=== PATIENT | female | born 1970 | race Caucasian/White ===

== ENCOUNTER 2024-12-20 11:54 | Outpatient (CLI) | payer MEDICARE, SELFPAY ==
[2024-12-20 12:59] LABS: Anion Gap 6 mmol/L (4-12); Blood Urea Nitrogen 8 mg/dL (7-17); Calcium 9.5 mg/dL (8.4-10.2); Carbon Dioxide 30 mmol/L (22-30); Chloride 103 mmol/L (98-107); Estimated Glomerular Filt Rate > 60; Glucose 74 mg/dL (65-110); Potassium 3.7 mmol/L (3.4-5.0); Sodium 139 mmol/L (137-145)
--- OUTSIDE RECORDS SUMMARY | 2024-12-20 13:23 | XMS_ITS | Data Portability ---
Author Organization [facility], [address] [facility] ([place]) Address [address] [place] [address] Care Team Providers Care Senior Windows Engineer Name Role Phone LANIE SIFUENTES Primary Care Provider Assessment No assessment recorded. Plan of Treatment Reminders Order Date Submit Date Provider Last Modified By Organization Details Last Modified Time Details Appointments None recorded. Lab None recorded. Referral None recorded. Procedures None recorded. Surgeries None recorded. Imaging None recorded. Medication Orders minoxidil 2.5 mg tablet 2023 [facility] [address], [address] [place] [address], [id number], 4 11:48:39 betamethaso ne dipropionat e 0.05 % lotion 2023 024 [facility] [address], [address] [place] [address], [id number], 4 11:48:40 Patient TargetsNo targets recorded. Patient Instructions Encounter Date Encounter Id Patient Instructions Last Modified By Organization Details Last Modified Time 02/03/2024 [id number] 1. Alopecia. Discussed pathophysiology and treatment options. At first I would like to start with blood work and patient agreed. CBC, CMP, TSH, B12, iron panel, and STORM are needed at this time. I will call with those results and give further recommendations at that time. In the meantime, I will start oral Minoxidil 2.5 mg 1/2 tablet daily. Patient declines a history of any cardiac disorders. Discussed possible side effects such as headaches, dizziness, heart palpitations, leg edema, etc. Call if she has any issues or questions. Recheck in 3 months. 2. I will also start Betamethasone lotion to apply to the scalp every other day until hair is back to normal then as needed. Warned about the long-term side effects and need to give breaks. 3. Rhytides to the forehead and Enlarged Pores to the nose and chin. Patient has not tried any antiaging products so I would like to try a retinoid. I would like to try Differin gel OTC first once a day in the evening after moisturizer. Patient would also like to see Yoli for possible Botox injections. Call with any questions or concerns. Plan of care reviewed and discussed with patient. Patient verbalizes understanding and has no questions. [email or web address] Not available 02/04/2024 06:52:59 Reason for Referral None Reported. Results Created Date Observation Date Name Description Value Unit Range Abnormal Flag Note LastModifiedBy Organization Detail LastModifiedTime 02/03/20 24 02/03/2024 CBC w/ auto diff CBC with differential Not Available [facility] [address] [place] [address], [id number], 02/03/2024 19:22:55 02/03/20 24 02/03/2024 CBC w/ auto diff WBC 7.0 K/uL 3.8-11 .2 Not Available [facility] [address] [place] [address], [id number], 02/03/2024 19:22:55 02/03/20 24 02/03/2024 CBC w/ auto diff RBC 5.10 M/uL 3.92-5 .10 Not Available [facility] [address] [place] [address], [id number], 02/03/2024 19:22:55 02/03/20 24 02/03/2024 CBC w/ auto diff HGB 15.3 g/dL 11.8-1 5.3 Not Available [facility] [address] [place] [address], [id number], 02/03/2024 19:22:55 02/03/20 24 02/03/2024 CBC w/ auto diff HCT 45.4 % 36.5-4 4.8 high Not Available [facility] [address] [place] [address], [id number], 02/03/2024 19:22:55 02/03/20 24 02/03/2024 CBC w/ auto diff MCV 89.0 fL 80.0-9 9.0 Not Available [facility] [address] [place] [address], [id number], 02/03/2024 19:22:55 02/03/20 24 02/03/2024 CBC w/ auto diff MCH 30.0 pg 25.5-3 3.6 Not Available [facility] [address] [place] [address], [id number], 02/03/2024 19:22:55 02/03/20 24 02/03/2024 CBC w/ auto diff MCHC 33.7 g/dL 32.0-3 6.0 Not Available [facility] [address] [place] [address], [id number], 02/03/2024 19:22:55 02/03/20 24 02/03/2024 CBC w/ auto diff RDW-SD 44.7 fL 35.1 - 46.3 Not Available [facility] [address] [place] [address], [id number], 02/03/2024 19:22:55 02/03/20 24 02/03/2024 CBC w/ auto diff plt 308 K/uL 130-40 0 Not Available [facility] [address] [place] [address], [id number], 02/03/2024 19:22:55 02/03/20 24 02/03/2024 CBC w/ auto diff MPV 9.2 fL 9.3-12 .8 low Not Available [facility] [address] [place] [address], [id number], 02/03/2024 19:22:55 02/03/20 24 02/03/2024 CBC w/ auto diff jai% 62.3 % 39.8-7 1.3 Not Available [facility] [address] [place] [address], [id number], 02/03/2024 19:22:55 02/03/20 24 02/03/2024 CBC w/ auto diff lym% 31.5 % 19.2-4 7.1 Not Available [facility] [address] [place] [address], [id number], 02/03/2024 19:22:55 02/03/20 24 02/03/2024 CBC w/ auto diff mono% 4.6 % 1.7-12 .0 Not Available [facility] [address] [place] [address], [id number], 02/03/2024 19:22:55 02/03/20 24 02/03/2024 CBC w/ auto diff eos% 0.6 % 0.0-12 .0 Not Available [facility] [address] [place] [address], [id number], 02/03/2024 19:22:55 02/03/20 24 02/03/2024 CBC w/ auto diff baso% 0.7 % 0.0-3. 0 Not Available [facility] [address] [place] [address], [id number], 02/03/2024 19:22:55 02/03/20 24 02/03/2024 CBC w/ auto diff abs jai 4.4 K/uL 1.8-7. 5 Not Available [facility] [address] [place] [address], [id number], 02/03/2024 19:22:55 02/03/20 24 02/03/2024 CBC w/ auto diff abs lym 2.2 K/uL 1.1-3. 3 Not Available [facility] [address] [place] [address], [id number], 02/03/2024 19:22:55 02/03/20 24 02/03/2024 CBC w/ auto diff abs mono 0.3 K/uL 0.1-1. 0 Not Available [facility] [address] [place] [address], [id number], 02/03/2024 19:22:55 02/03/20 24 02/03/2024 CBC w/ auto diff abs eos 0.0 K/uL 0.0-0. 7 Not Available [facility] [address] [place] [address], [id number], 02/03/2024 19:22:55 02/03/20 24 02/03/2024 CBC w/ auto diff abs baso 0.1 K/uL 0.0-0. 2 Not Available [facility] [address] [place] [address], [id number], 02/03/2024 19:22:55 02/03/20 24 02/03/2024 CBC w/ auto diff imm. gran % 0.3 % 0.0-3. 0 Not Available [facility] [address] [place] [address], 61277, 02/03/2024 19:22:55 02/03/20 24 02/03/2024 CBC w/ auto diff NRBC % 0.0 % 0.0-0. 2 Not Available [facility] [address] [place] [address], 87634, 02/03/2024 19:22:55 02/03/20 24 02/03/2024 folat e, serum folate-serum 12.90 NG/mL 5.9 - >24 <4 = Defic ient Speci mens that conta in high level s of bioti n may cause false ly high Folat e resul ts. Not Available [facility] [address] [place] [address], [id number], 02/03/2024 19:38:57 02/03/20 24 02/03/2024 TSH, ultra -sens itive , serum TSH3 0.792 uIU/m L .340-5 .600 Not Available [facility] [address] [place] [address], 48984, 02/03/2024 19:47:57 02/03/20 24 02/03/2024 CMP, serum or plasm a comp. met. panel Not Available [facility] [address] [place] [address], [id number], 02/03/2024 19:47:59 02/03/20 24 02/03/2024 CMP, serum or plasm a sodium 142 mmol/ L 136-14 6 Not Available [facility] [address] [place] [address], 31564, 02/03/2024 19:47:59 02/03/20 24 02/03/2024 CMP, serum or plasm a potassium 4.2 mmol/ L 3.5-5. 1 Not Available [facility] [address] [place] [address], 78951, 02/03/2024 19:47:59 02/03/20 24 02/03/2024 CMP, serum or plasm a chloride 104 mmol/ L 98-110 Not Available [facility] [address] [place] [address], 37351, 02/03/2024 19:47:59 02/03/20 24 02/03/2024 CMP, serum or plasm a CO2 28 mEq/L 20-32 Not Available [facility] [address] [place] [address], 52596, 02/03/2024 19:47:59 02/03/20 24 02/03/2024 CMP, serum or plasm a anion gap 14 mmol/ L 10-22 Not Available [facility] [address] [place] [address], 98335, 02/03/2024 19:47:59 02/03/20 24 02/03/2024 CMP, serum or plasm a glucose 75 mg/dL 70-100 Not Available [facility] [address] [place] [address], 30202, 02/03/2024 19:47:59 02/03/20 24 02/03/2024 CMP, serum or plasm a calcium 10.5 mg/dL 8.4-10 .4 high Not Available [facility] [address] [place] [address], 44369, 02/03/2024 19:47:59 02/03/20 24 02/03/2024 CMP, serum or plasm a total protein 7.3 g/dL 6.4-8. 3 Not Available [facility] [address] [place] [address], 17934, 02/03/2024 19:47:59 02/03/20 24 02/03/2024 CMP, serum or plasm a albumin 4.9 g/dL 3.5-5. 3 Not Available [facility] [address] [place] [address], 90996, 02/03/2024 19:47:59 02/03/20 24 02/03/2024 CMP, serum or plasm a ALP 96 U/L 44 - 127 Not Available [facility] [address] [place] [address], 12683, 02/03/2024 19:47:59 02/03/20 24 02/03/2024 CMP, serum or plasm a AST (SGOT) 18 U/L 10-40 Not Available [facility] [address] [place] [address], [id number], 02/03/2024 19:47:59 02/03/20 24 02/03/2024 CMP, serum or plasm a total bilirubin 0.4 mg/dL 0.2-1. 0 Not Available [facility] [address] [place] [address], [id number], 02/03/2024 19:47:59 02/03/20 24 02/03/2024 CMP, serum or plasm a ALT (SGPT) 11 U/L 8-35 Not Available [facility] [address] [place] [address], 87767, 02/03/2024 19:47:59 02/03/20 24 02/03/2024 CMP, serum or plasm a BUN 8 mg/dL 7-21 Not Available [facility] [address] [place] [address], 49778, 02/03/2024 19:47:59 02/03/20 24 02/03/2024 CMP, serum or plasm a creatinine 0.9 mg/dL 0.7-1. 3 Not Available [facility] [address] [place] [address], [id number], 02/03/2024 19:47:59 02/03/20 24 02/03/2024 CMP, serum or plasm a GFR(non-afri can new zealander) 69 Not Available [facility] [address] [place] [address], 84201, 02/03/2024 19:47:59 02/03/20 24 02/03/2024 CMP, serum or plasm a GFR() 84 (BOILER WELDER STEPH KIDNE Y DISEA SE HAS A GFR LESS THAN 60 ML/OK N/1.7 3 MM FOR A PERIO D OF THREE MONTH S OR MORE. ) Not Available [facility] [address] [place] [address], 44813, 02/03/2024 19:47:59 02/03/20 24 02/03/2024 iron panel , serum or plasm a iron panel Not Available [facility] [address] [place] [address], 35703, 02/03/2024 19:48:01 02/03/20 24 02/03/2024 iron panel , serum or plasm a iron 80 ug/dL 50-212 Not Available [facility] [address] [place] [address], 44853, 02/03/2024 19:48:01 02/03/20 24 02/03/2024 iron panel , serum or plasm a % saturation 22 % 20-55 Not Available [facility] [address] [place] [address], 57204, 02/03/2024 19:48:01 02/03/20 24 02/03/2024 iron panel , serum or plasm a ferritin 36 NG/mL 12-150 Not Available [facility] [address] [place] [address], 02499, 02/03/2024 19:48:01 02/03/20 24 02/03/2024 iron panel , serum or plasm a TIBC. 363 ug/dL 205 - 512 Not Available [facility] [address] [place] [address], 95073, 02/03/2024 19:48:01 02/03/20 24 02/03/2024 vitam in B12, serum vitamin B12 847 pg/mL 180-91 4 <145 pg/mL = Defic ient 145 - 180 pg/mL = Inter media te Not Available [facility] [address] [place] [address], 33542, 02/03/2024 19:48:03 02/03/20 24 02/05/2024 STORM (anti nucle ar antib odies ) scree n, serum STORM screen NEGATI VE negati ve Perfo rmed by Bio-R ad enzym e immun oassa y Not Available [facility] [address] [place] [address], 92946, 02/05/2024 12:29:22 Result Notes None recorded. 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 Procedures Surgical History Date Name Laterality Status Provider Name and Address Organization Details Recorded Time Appendectomy completed Not Available Health Note 02/02/2024 22:55:40 Total hysterectomy completed Not Available Health Note 02/02/2024 22:55:40 Removal of tonsils completed Not Available Health Note 02/02/2024 22:55:40 Imaging Results None recorded. Procedure Notes None recorded. Medical Equipment None Reported. Allergies Allergen ID Allergen Name Allergen Category Reaction Reaction Severity Criticality Documentation Date Start Date Code Code System Note Provider Name and Address Organization Details Recorded Time 2521307 Product containin g penicilli n (product) medicatio n itching rash Not available Not available Not available 02/02/2024 30351 8001 SNOMED Not Available Health Note 4 22:55:40 [id number] pholcodin e Not available itching nausea rash Not available Not available Not available Not available 02/02/2024 96437 RxNorm Xochitl Jacob [facility] 4 11:10:35 1072186 codeine medicatio n headache rash Not available Not available Not available 02/03/2024 2670 [facility] 4 11:11:06 6166054 prednison e medicatio n Not available Not available Not available 04/21/20242010 8640 RxNorm Not Available [facility] 4 20:32:06 3014671 codeine sulfate medicatio n Not available Not available Not available 04/21/20242010 03389 RxNorm Not Available [facility] 4 20:32:14 4630425 azithromy serafin medicatio n Not available Not available Not available 04/21/20242010 32653 RxNorm Not Available [facility] 20:32:29 Medications Name Sig Start Date Stop Date Status Note LastModified by Organization Details LastModified Time cyclobenzap rine 10 mg tablet TAKE 1 TO 2 TABLETS BY MOUTH EVERY 6 HOURS NEEDED active Not Available Not Available No t Available atorvastati n 20 mg tablet TAKE ONE Tablet BY MOUTH EVERY DAY active Not Available Not Available No t Available azithromyci n 250 mg tablet TAKE 2 TABLETS BY MOUTH ON DAY 1, AND THEN TAKE 1 TABLET BY MOUTH ONCE A DAY ON DAY 2 THROUGH DAY 5 02/02 completed Not Available Not Available Not Available meloxicam 15 mg tablet 02/02 completed Not Available Not Available Not Available ondansetron HCl 4 mg tablet TAKE 1 TABLET BY MOUTH EVERY 8 HOURS NEEDED active Not Available Not Available No t Available ropinirole 3 mg tablet TAKE 1 TABLET BY MOUTH THREE TIMES DAILY active Not Available Not Available No t Available gabapentin 400 mg capsule TAKE THREE Capsules BY MOUTH THREE TIMES DAILY active Not Available Not Available No t Available hydroxyzine HCl 50 mg tablet TAKE 1 TABLET BY MOUTH 4 TIMES DAILY NEEDED active Not Available Not Available No t Available minoxidil 2.5 mg tablet take 1/2 tab daily 2023 active Not Available Not Available Not Avai lable ropinirole 2 mg tablet TAKE ONE Tablet BY MOUTH THREE TIMES DAILY active Not Available Not Available No t Available trazodone 150 mg tablet TAKE 2 TABLETS BY MOUTH AT BEDTIME active Not Available Not Available No t Available oxybutynin chloride ER 5 mg tablet,exte nded release 24 hr TAKE 1 TABLET BY MOUTH ONCE DAILY active Not Available Not Available No t Available omeprazole 20 mg capsule,del ayed release TAKE 2 CAPSULES BY MOUTH AT BEDTIME active Not Available Not Available No t Available levofloxaci n 500 mg tablet TAKE 1 TABLET BY MOUTH ONCE DAILY FOR 10 DAYS 02/02 completed Not Available Not Available Not Available oxybutynin chloride 5 mg tablet TAKE 1 TABLET BY MOUTH TWICE DAILY active Not Available Not Available No t Available betamethaso ne dipropionat e 0.05 % lotion apply to scalp every other day until hair is normal, then as needed 2023 active Not Available Not Available Not Avai lable Ventolin HFA 90 mcg/actuati on aerosol inhaler INHALE 2 PUFFS BY MOUTH EVERY 4 HOURS NEEDED active Not Available Not Available No t Available escitalopra m 10 mg tablet TAKE 1 TABLET BY MOUTH ONCE DAILY 02/02 completed Not Available Not Available Not Available Premarin 0.625 mg/gram vaginal cream INSERT 0.5 APPLICATO RSFUL EVERY DAY BY VAGINAL ROUTE, USE NIGHTLY FOR 2 WEEKS, THEN EVERY OTHER NIGHT, THEN TWICE PER WEEK active Not Available Not Available No t Available Vitals Date Recorded Body height Body mass index (BMI) Body weight Provider Name and Address Organization Details Last Updated DateTime 02/03/2024 170.18 cm 19.3 kg/m2 56914.86 g Xochitl Mcgheek [place] - [facility] 02/03/2024 11:10:13 Social History Question Answer Notes LastModified by [employer] ion Details LastModified Time Do You Have An Advance Directive? No [email or web address] Information not available 02/02/2024 What Is Your Level Of Caffeine Consumption? Moderate [email or web address] Information not available 02/02/2024 How Many Times Per Week Do You Exercise? 1-2 Times Per Week [email or web address] Information not available 02/02/2024 How Many Packs Per Day (PPD)? 1/4 Pack Per Day [email or web address] Information not available 02/02/2024 How Long Have You Smoked? 30 Years [email or web address] Information not available 02/02/2024 Do You Have A Medical Power Of Claim Administrator? No [email or web address] Information not available 02/02/2024 What Was The Date Of Your Most Recent Tobacco Screening? 02/03/2024 [email or web address] Information not available 02/02/2024 What Is Your Relationship Status? [email or web address] Information not available 02/02/2024 Do You Use Sunscreen Routinely? Yes [email or web address] Information not available 02/03/2024 Sex: Unknown Functional Status Question Answer Note LastModified by [employer] ion Details LastModified Time Do you use any illicit or recreational drugs? No [email or web address] Information not available 02/02/2024 What is your level of alcohol consumption? None [email or web address] Information not available 02/02/2024 Are you currently employed? No [email or web address] Information not available 02/02/2024 What is your occupation? Disabled [email or web address] Information not available 02/02/2024 What is your exercise level? Occasional [email or web address] Information not available 02/02/2024 Mental Status None recorded. Family History Relationship Description Onset Age of this Age Resolved Age Notes LastModified by Organization Details LastModified Time Son Attention deficit hyperactivit y disorder [email or web address] Not available 02/01 22:55:39 Mother Arthritis [email or web address] Not available 02/02/2024 22:55:39 Mother Chronic obstructive pulmonary disease [email or web address] Not available 2023 22:55:39 Mother Hypercholest erolemia [email or web address] Not available 2023 22:55:39 Mother Osteoporosis [email or web address] Not availa ble 02/02/2024 22:55:39 Mother Disorder of thyroid gland [email or web address] Not available 2023 22:55:39 Father Arthritis [email or web address] Not available 02/02/2024 22:55:39 Father Chronic obstructive pulmonary disease [email or web address] Not available 2023 22:55:39 Maternal Grandfather Arthritis [email or web address] Not available 01/12 22:55:39 Paternal Grandfather Arthritis [email or web address] Not available 01/12 22:55:39 Maternal Grandmother Arthritis [email or web address] Not available 01/12 22:55:39 Maternal Grandmother Osteoporosis [email or web address] Not available 0 02/02/2024 22:55:39 Paternal Grandmother Arthritis [email or web address] Not available 01/12 22:55:39 Paternal Grandmother Osteoporosis [email or web address] Not available 0 02/02/2024 22:55:39 Medical History Condition Response Diabetes N Anxiety Disorder N Bleeding Disorder N Attention-deficit Hyperactivity Disorder N High Blood Pressure N Arthritis N Hyperlipidemia N Cancer N Stroke N Thyroid Problems N Asthma N Depression Y COPD Y Anemia N Seizures N Heart Disease N Fibromyalgia Y Osteoporosis Y Kidney Disease N Gynecological HistoryNo gynecological history recorded. Obstetrics History GPAL:G 0 P 0 0 0 0 Past Encounters Encounter ID Performer Location Encounter Start Date Encounter Closed Date Diagnosis/Indication Diagnosis SNOMED-CT Code Diagnosis ICD10 Code Diagnosis Note [id number] Adele Mullins, ROOM SERVER, ANALYTICAL CLERK [facility] [address] [place] [phone] 02/03/2024 11:05:30 02/03/2024 11:50:13 Alopecia 27496832 L65.9 Rhytide of forehead 4291 54509 R23.4 Health Concerns Section Related Observation LastModified by Organization Detai ls LastModified Time None Recorded Concern Status LastModified by Organization Details LastModified Time None Recorded Advance Directives Directive N: Payers Insurance Date Sequence Insurance Name Policy Number Policy Fernández Covered Member ID Fernández Member ID Guarantor Name 02/05/2024 2 [place] [id number] Brenda Hammer [id number] Brenda Harman 02/03/2024 1 [place] Brenda Cleary Harman [id number] Brenda Harman Notes Date Note Type Note Provider Name and Address Organization Details Recorded Time 02/03/2024 text/html 53-year-old [place] patient is here to discuss hair loss that she has had for approximately 2 years. Patient states it started out gradually and now it seems to be a consistent thing. Patient states she loses several hairs a day and her hair seems very thin. No itching, no bleeding, no soreness.Patient would also like to discuss pores to her face as well as wrinkles. Patient has not tried any OTC anti-aging products. Adele Mullins, ROOM SERVER, ANALYTICAL CLERK [address] [facility], [place], [address], [facility] 02/04/2024 06:53:36 OBGyn Episode No OBEpisode recorded.
--- OUTSIDE RECORDS SUMMARY | 2024-12-20 13:23 | XMS_ITS | Encounter Summary ---
Author Organization [facility] Address [address] [place] [address] Phone Care Team Providers Care Bmet Name Role Phone Kenrick Herbert MD Primary Care Provider Reason for Referral * Consultation - Closed Specialty Diagnoses / Procedures Referred By Stacey byrne Referred To Contact Plastic Surgery Diagnoses [place] reconstructed breast Procedures AMB CONSULT PLASTIC SURGERY Jennifer Johnson MD [facility] [address] [place] [address] Phone: tel: fax: Plastic Surg [facility] [address] [place] [address] Phone: tel: fax: Referral ID Status Reason Start Date Expiration Date Visits Re quested Visits Authorized [id number] Closed 12/31/2023 1 1 Encounter Details Date Type Department Care Team (Latest Contact Info) Description 12/31/2023 Transcribe Orders Plastic Surg [facility] [address] [place] [address] Provider, Unknown [place] reconstructed breast (Primary Dx) Social History Tobacco Use Types Packs/Day Years Used Date Smoking Tobacco: Never Assessed Comments Unknown Sex and Gender Information Value Date Recorded Sex Assigned at Not on file Legal Sex Female 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 Gender Identity Not on file Sexual Orientation Not on file documented as of this encounter Plan of Treatment Upcoming Encounters Date Type Department Care Team (Late st Contact Info) Description 01/19/2025 2:00 PM CDT Consult Plastic Surg [facility] [address] [place], [place] [phone] Noe Baltazar MD [address] [place], [place] [id number] documented as of this encounter Visit Diagnoses Diagnosis [place] 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
--- OUTSIDE RECORDS SUMMARY | 2024-12-20 13:23 | XMS_ITS | Encounter Summary ---
Author Organization 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 Please ensure insurance is loaded onto P/F account. Thank you! * Telephone Encounter - Hugo Petersen - 01/14/2024 11:32 AM CDT Patient called about referral placed by Dr. Johnson for dx of misshapen reconstructed breast. Patient believes that this is a medically needed procedure due to previous surgery, not done at [facility],no record. PSR notes that plastic surgery guidelines state that Breast aug/implants are a cosmetic procedure. PSR offered to schedule consult and let MD determine if any different. PSR did tell patient that there is a $75 cosmetic consult fee. Patient verbalized understanding. Routing to Nurse and PSR paper supervisor to review referral documented in this encounter Plan of Treatment Upcoming Encounters Date Type Department Care Team (Late st Contact Info) Description 01/19/2025 2:00 PM CDT Consult Plastic Surg [facility] [address] [place] [address] Noe Baltazar MD [address] [place], [place] [phone] documented as of this encounter Visit Diagnoses Not on filedocumented in this encounter Care Teams Teletype Adjuster Relationship Specialty Start Date End Date Kenrick Herbert MD [address] [place] [address] PCP - General Wound Care 12/31/23 documented as of this encounter
--- OUTSIDE RECORDS SUMMARY | 2024-12-20 13:23 | XMS_ITS | Clinical Summary ---
Author Organization [facility] Address [address] [place] [address] Phone Care Team Providers Care Harnessmaker Name Role Phone Kenrick Herbert MD Primary Care Provider Allergies Active Allergy Reactions Criticality Noted Date Comments Amitriptyline Other; see comment 02/19/2019 Makes me mean Azithromycin Other; see comment,Rash Low 12/22/2015 Cefuroxime Nausea Medium 02/19/2019 Codeine Rash Medium 12/22/2015 Penicillins Rash Low 02/24/2024 Prednisone Swelling 02/24/2024 Throat swelling Varenicline Other; see comment 02/19/2019 freaks me out Medications gabapentin (NEURONTIN) 400 mg capsule Take 400 mg by mouth 3 (three) times daily Active potassium chloride 20 mEq extended release tablet Take 20 mEq by mouth every day Active omeprazole EC (PRILOSEC OTC) 20 mg delayed release tablet Take by mouth 2 (two) times daily Active cyclobenzaprine 10 mg tablet Take by mouth 6 (six) times daily as needed for muscle spasm Active hydrOXYzine HCL 10 mg tablet Take 10 mg by mouth 4 (four) times daily as needed Active traZODone 150 mg tablet Take 300 mg by mouth daily at bedtime Active cyanocobalamin (VITAMIN B-12) 500 mcg tablet Take 250 mcg by mouth every day Active rOPINIRole (REQUIP) 3 mg tablet Take 3 mg by mouth 3 (three) times daily Active escitalopram oxalate (LEXAPRO) 10 mg tablet Take 10 mg by mouth every day Active minoxidiL (LONITEN) 2.5 mg tablet Take by mouth every day Active Active Problems Problem Noted Date 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 Social History Tobacco Use Types Packs/Day Years Used Date Smoking Tobacco: Every Day Passive Smoke Exposure: Never Smokeless Tobacco: Never Tobacco Cessation:Ready to Q uit: Yes; Counseling Given: No Comments Unknown Sex and Gender Information Value Date Recorded Sex Assigned at Not on file 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 Gender Identity Not on file Sexual Orientation Not on file Last Filed Vital Signs Vital Sign Reading Time Taken Comments Blood Pressure 124/84 02/24/2024 11:00 AM CDT Pulse 89 02/24/2024 11:00 AM CDT Temperature - - Respiratory Rate - - Oxygen Saturation - - Inhaled Oxygen Concentration - - Weight 58.5 kg (128 lb 15.5 oz) 024 11:00 AM CDT Height 170.2 cm (5' 7) 02/24/2024 11:0 0 AM CDT Body Mass Index 20.2 02/24/2024 11:00 AM CDT Plan of Treatment Upcoming Encounters Date Type Department Care Team (Late st Contact Info) Description 01/19/2025 2:00 PM CDT Consult Plastic Surg [facility] [address] [place] [address] Noe Baltazar MD [address] [place] [address] Health Maintenance Due Date Last Done Comments Diagnostic Colonoscopy 1968 MMR Vaccines (1 of 1 - Standard series) 1969 Depression Screening 1980 Lipid Panel 1988 Pap Smear 1989 Cervical Cancer Screening 1998 HPV/Co-Testing 1998 Screening for Diabetes 2003 Hepatitis B Vaccines (3 of 3 - 19+ 3-dose series) 09/10/2008 06/06/2008, 03/11/2008 CT Colonography 2013 Colorectal Cancer Screening 2013 FIT-DNA (Cologuard) 2013 Fecal Immunochemical Testing (FIT) 2013 Fecal Occult Blood (FOBT) 2013 Flexible Sigmoidoscopy 2013 Screening Colonoscopy 2013 Eligible for Initial Annual Medicare Wellness Exam 10/12/2014 Pneumococcal Vaccines (50+) (2 of 2 - PPSV23) 08/24/2015 06/29/2015 DTaP/Tdap/Td Vaccines (2 - Td or Tdap) 03/11/2018 03/11/2008 HCPOA Document on File 2018 Zoster (Shingles) Vaccine (1 of 2) 2018 COVID-19 Vaccine (1 - season) 2024 Influenza Vaccine (Season Ended) 2025 05/08/2023, 04/03/2022, 06/01/2020, Additional history exists Breast Cancer Screening 06/08/2025 06/08/2024 HIB Vaccines Aged Out No longer eligi ble based on patient's age to complete this topic HPV Vaccines Aged Out No longer eligi ble based on patient's age to complete this topic Hepatitis A Vaccines Aged Out No long er eligible based on patient's age to complete this topic IPV Vaccines Aged Out No longer eligi ble based on patient's age to complete this topic Meningococcal B Vaccine Aged Out No l onger eligible based on patient's age to complete this topic Meningococcal Vaccine (ACWY) Aged Out No longer eligible based on patient's age to complete this topic Rotavirus Vaccines Aged Out No longer eligible based on patient's age to complete this topic Insurance [employer] [facility] MEDICARE [facility] [employer] [facility] MEDICARE Care Teams Harnessmaker Relationship Specialty Start Date End Date Kenrick Herbert MD [address] [place] [address] PCP - General Wound Care 12/31/23
== END 2024-12-20 11:55 | disposition home or self-care (01) ==
PROVIDERS: Anesthesiology; Visit Provider Urology
DX: Z86.39 Personal history of other endocrine, nutritional and metabolic disease (principal)
CPT/HCPCS: 36415; 80048

== ENCOUNTER 2024-12-24 01:30 | Day surgery (SDC) | payer MEDICARE, SELFPAY ==
[2024-12-16 10:33] VITALS: BMI 22.4
--- NOTE | 2024-12-16 10:56 | PC.NURSE ---
Addendum entered by Veronica Pearson RN 12/16/24 11:43: ALTERNATELY, YOU MAY ALSO TAKE YOUR FLUDROCORTISONE THE MORNING OF SURGERY IF YOU HAVE LOW BLOOD PRESSURE Original Note: Report to the Outpatient Waiting Room, entrance under the green pavilion located off [facility], at time _0615AM on date Fri12/24/24 . Planned Procedure Time: _0815AM .? Time changes happen often and if your time is changed the preop area will call you the afternoon before. - You and your visitor will be asked to self-screen and do not enter if you have any COVID symptoms. Please call surgeon if you need to reschedule. - A mask is optional within the hospital at this time. Patients may have clear liquids (water, carbonated beverages, clear teas, apple juice) until 3 hours prior to surgery with a maximum of 20 ounces. - No food from midnight until time of surgery and no smoking, or chewing tobacco (or any form of nicotine). No chewing gum, candy or mints. Take only the following medications with a SIP of water on the morning of surgery: __GABAPENTIN; METOPROLOL IF NEEDED FOR HIGH BLOOD PRESSURE DO NOT STOP ANY OF YOUR OTHER PRESCRIPTION MEDICATIONS PRIOR TO SURGERY EXCEPT THE FOLLOWING Hold all vitamins and supplements for 3 days per anesthesiologist. Medications to discontinue per physician ____VITAMIN B12 AND CALCIUM Date to take last dose____12/21/24 Please no make-up, nail macedonian, hairspray, perfume, deodorant, or body powder the day of surgery.? No jewelry (including any body piercings) or valuables the day of surgery, leave them at home.? Please take a shower or bath the night before, or the morning of, surgery with an antibacterial soap.? Wear comfortable, loose fitting clothing.? - Jewelry must be removed prior to entering the operating room.? Rings and piercings that are not removed may be cut off. - The hospital will not accept responsibility for valuables.? - Please leave all valuables, including medications, at home the day of surgery. If you are going home after surgery, a licensed bulk truck driver must drive you home.? - NO public transportation without another adult if you receive anesthesia. - We recommend that an adult stay with you for 24 hours following discharge. - We also recommend that you do not drive, make important decision, drink alcoholic beverages, or take any drugs that were not prescribed by your health care provider for at least 24 hours after your discharge time. Follow any additional instructions given to you from your surgeon. Telephone instructions given to _[employer] [employer] [facility] and asked if any additional questions and then verbalized understanding. Patient advised to call surgeon office or pre surgery nurse liaison [phone] if any additional questions.
--- NOTE | 2024-12-19 20:15 | PM.IMHP ---
H&P: HPI History of Present Illness Date/Time: 12/19/24 20:15 Chief Complaint: UUI Narrative: Successful trial of SNS Review of Systems Review of Systems: All systems reviewed & are unremarkable except as noted in HPI and below [facility] Social History Social History Smoking packs per day: 1 Smoking cigarettes per day: 20.0 Years smoked: 15 Smoking pack-years: 15.00 Smoking status: Former smoker Tobacco type: cigarettes Smoking end date: 09/13/24 Alcohol intake: never Substance use: never Living arrangements: with family Spiritual care concerns: No Meds Home Medications and Allergies Home Medications ?Medication ?Instructions ?Recorded ?Confirmed ?Type calcium carbonate (Calcium 600) 600 mg PO DAILY 12/16/24 12/16/24 History cyanocobalamin (vitamin B-12) 500 2,500 mcg PO DAILY 12/16/24 12/16/24 History mcg tablet cyclobenzaprine 10 mg tablet 10 mg PO HS 12/16/24 12/16/24 History fludrocortisone 0.1 mg tablet 0.1 mg PO DAILY PRN hypotension 12/16/24 12/16/24 History gabapentin 400 mg capsule 400 mg PO TID 12/16/24 12/16/24 History hydroxyzine HCl 50 mg tablet 50 mg PO HS PRN insomnia 12/16/24 12/16/24 History lisinopril 20 mg tablet 20 mg PO DAILY 12/16/24 12/16/24 History metoprolol tartrate 25 mg tablet 25 mg PO DAILY PRN hypertensive 12/16/24 12/16/24 History emergency omeprazole 20 mg capsule,delayed 40 mg PO HS 12/16/24 12/16/24 History release potassium chloride 20 mEq 20 meq PO DAILY 12/16/24 12/16/24 History tablet,extended release ropinirole 3 mg tablet 3 mg PO TID 12/16/24 12/16/24 History rosuvastatin 5 mg tablet 5 mg PO DAILY 12/16/24 12/16/24 History trazodone 150 mg tablet 300 mg PO HS 12/16/24 12/16/24 History Allergies Allergy/AdvReac Type Severity Reaction Status Date / Time adhesive tape Allergy Mild BLISTERS Verified 12/16/24 12:01 codeine Allergy Mild Rash Verified 12/16/24 12:01 Penicillins Allergy Mild Rash Verified 12/16/24 12:01 STEROID Allergy Unknown RESPIRATORY Uncoded 12/16/24 12:01 DISTRESS Exam Narrative: NAD A+O x3 Assessment and Plan Assessment and plan (1) Urge incontinence: Code(s): N39.41 - Urge incontinence Status: Acute Assessment and Plan: InterStim implant
--- NOTE | ~2024-12-24 | XR_ITS ---
XR fluoroscopy <1hr Indication: Neurostimulator implant TECHNIQUE: Fluoroscopy used during Neurostimulator implant performed by [Santana Matt MD] on 12/24/2024. Fluoroscopy time is 33 seconds with 2 fluoroscopic images captured. FINDINGS: Correlate with procedure note. IMPRESSION: Fluoroscopy used during Neurostimulator implant. Reviewed, dictated and finalized at location B.
--- OUTSIDE RECORDS SUMMARY | 2024-12-24 01:35 | XMS_ITS | Clinical Summary ---
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
--- OUTSIDE RECORDS SUMMARY | 2024-12-24 01:35 | XMS_ITS | Data Portability ---
Author Organization [facility], [address] [facility] ([place]) Address [address] [place] [address] Care Team Providers Care Telephone Exchange Operator Name Role Phone LANIE SIFUENTES Primary Care Provider Assessment No assessment recorded. Plan of Treatment Reminders Order Date Submit Date Provider Last Modified By Organization Details Last Modified Time Details Appointments None recorded. Lab None recorded. Referral None recorded. Procedures None recorded. Surgeries None recorded. Imaging None recorded. Medication Orders minoxidil 2.5 mg tablet 2023 [facility] [address], [address] [place] [address], [id number], 4 11:48:39 betamethaso ne dipropionat e 0.05 % lotion 2023 024 [facility] [address], [address] [place] [address], [id number], 4 11:48:40 Patient TargetsNo targets recorded. Patient Instructions Encounter Date Encounter Id Patient Instructions Last Modified By Organization Details Last Modified Time 02/03/2024 [id number] 1. Alopecia. Discussed pathophysiology and treatment options. [...] auto diff CBC with differential Not Available [facility] [address] [place] [address], [id number], 02/03/2024 19:22:55 02/03/20 24 02/03/2024 CBC w/ auto diff WBC 7.0 K/uL 3.8-11 .2 Not Available [facility] [address] [place] [address], [id number], 02/03/2024 19:22:55 02/03/20 24 02/03/2024 CBC w/ auto diff RBC 5.10 M/uL 3.92-5 .10 Not Available [facility] [address] [place] [address], [id number], 02/03/2024 19:22:55 02/03/20 24 02/03/2024 CBC w/ auto diff HGB 15.3 g/dL 11.8-1 5.3 Not Available [facility] [address] [place] [address], [id number], 02/03/2024 19:22:55 02/03/20 24 02/03/2024 CBC w/ auto diff HCT 45.4 % 36.5-4 4.8 high Not Available [facility] [address] [place] [address], [id number], 02/03/2024 19:22:55 02/03/20 24 02/03/2024 CBC w/ auto diff MCV 89.0 fL 80.0-9 9.0 Not Available [facility] [address] [place] [address], [id number], 02/03/2024 19:22:55 02/03/20 24 02/03/2024 CBC w/ auto diff MCH 30.0 pg 25.5-3 3.6 Not Available [facility] [address] [place] [address], [id number], 02/03/2024 19:22:55 02/03/20 24 02/03/2024 CBC w/ auto diff MCHC 33.7 g/dL 32.0-3 6.0 Not Available [facility] [address] [place] [address], [id number], 02/03/2024 19:22:55 02/03/20 24 02/03/2024 CBC w/ auto diff RDW-SD 44.7 fL 35.1 - 46.3 Not Available [facility] [address] [place] [address], [id number], 02/03/2024 19:22:55 02/03/20 24 02/03/2024 CBC w/ auto diff plt 308 K/uL 130-40 0 Not Available [facility] [address] [place] [address], [id number], 02/03/2024 19:22:55 02/03/20 24 02/03/2024 CBC w/ auto diff MPV 9.2 fL 9.3-12 .8 low Not Available [facility] [address] [place] [address], [id number], 02/03/2024 19:22:55 02/03/20 24 02/03/2024 CBC w/ auto diff jai% 62.3 % 39.8-7 1.3 Not Available [facility] [address] [place] [address], 54705, 02/03/2024 19:22:55 02/03/20 24 02/03/2024 CBC w/ auto diff lym% 31.5 % 19.2-4 7.1 Not Available [facility] [address] [place] [address], [id number], 02/03/2024 19:22:55 02/03/20 24 02/03/2024 CBC w/ auto diff mono% 4.6 % 1.7-12 .0 Not Available [facility] [address] [place] [address], [id number], 02/03/2024 19:22:55 02/03/20 24 02/03/2024 CBC w/ auto diff eos% 0.6 % 0.0-12 .0 Not Available [facility] [address] [place] [address], [id number], 02/03/2024 19:22:55 02/03/20 24 02/03/2024 CBC w/ auto diff baso% 0.7 % 0.0-3. 0 Not Available [facility] [address] [place] [address], [id number], 02/03/2024 19:22:55 02/03/20 24 02/03/2024 CBC w/ auto diff abs jai 4.4 K/uL 1.8-7. 5 Not Available [facility] [address] [place] [address], [id number], 02/03/2024 19:22:55 02/03/20 24 02/03/2024 CBC w/ auto diff abs lym 2.2 K/uL 1.1-3. 3 Not Available [facility] [address] [place] [address], [id number], 02/03/2024 19:22:55 02/03/20 24 02/03/2024 CBC w/ auto diff abs mono 0.3 K/uL 0.1-1. 0 Not Available [facility] [address] [place] [address], [id number], 02/03/2024 19:22:55 02/03/20 24 02/03/2024 CBC w/ auto diff abs eos 0.0 K/uL 0.0-0. 7 Not Available [facility] [address] [place] [address], [id number], 02/03/2024 19:22:55 02/03/20 24 02/03/2024 CBC w/ auto diff abs baso 0.1 K/uL 0.0-0. 2 Not Available [facility] [address] [place] [address], [id number], 02/03/2024 19:22:55 02/03/20 24 02/03/2024 CBC w/ auto diff imm. gran % 0.3 % 0.0-3. 0 Not Available [facility] [address] [place] [address], [id number], 02/03/2024 19:22:55 02/03/20 24 02/03/2024 CBC w/ auto diff NRBC % 0.0 % 0.0-0. 2 Not Available [facility] [address] [place] [address], [id number], 02/03/2024 19:22:55 02/03/20 24 02/03/2024 folat e, serum folate-serum 12.90 NG/mL 5.9 - >24 <4 = Defic ient Speci mens that conta in high level s of bioti n may cause false ly high Folat e resul ts. Not Available [facility] [address] [place] [address], [id number], 02/03/2024 19:38:57 02/03/20 24 02/03/2024 TSH, ultra -sens itive , serum TSH3 0.792 uIU/m L .340-5 .600 Not Available [facility] [address] [place] [address], [id number], 02/03/2024 19:47:57 02/03/20 24 02/03/2024 CMP, serum or plasm a comp. met. panel Not Available [facility] [address] [place] [address], [id number], 02/03/2024 19:47:59 02/03/20 24 02/03/2024 CMP, serum or plasm a sodium 142 mmol/ L 136-14 6 Not Available [facility] [address] [place] [address], [id number], 02/03/2024 19:47:59 02/03/20 24 02/03/2024 CMP, serum or plasm a potassium 4.2 mmol/ L 3.5-5. 1 Not Available [facility] [address] [place] [address], 51807, 02/03/2024 19:47:59 02/03/20 24 02/03/2024 CMP, serum or plasm a chloride 104 mmol/ L 98-110 Not Available [facility] [address] [place] [address], 39553, 02/03/2024 19:47:59 02/03/20 24 02/03/2024 CMP, serum or plasm a CO2 28 mEq/L 20-32 Not Available [facility] [address] [place] [address], [id number], 02/03/2024 19:47:59 02/03/20 24 02/03/2024 CMP, serum or plasm a anion gap 14 mmol/ L 10-22 Not Available [facility] [address] [place] [address], 66911, 02/03/2024 19:47:59 02/03/20 24 02/03/2024 CMP, serum or plasm a glucose 75 mg/dL 70-100 Not Available [facility] [address] [place] [address], [id number], 02/03/2024 19:47:59 02/03/20 24 02/03/2024 CMP, serum or plasm a calcium 10.5 mg/dL 8.4-10 .4 high Not Available [facility] [address] [place] [address], 59421, 02/03/2024 19:47:59 02/03/20 24 02/03/2024 CMP, serum or plasm a total protein 7.3 g/dL 6.4-8. 3 Not Available [facility] [address] [place] [address], 71026, 02/03/2024 19:47:59 02/03/20 24 02/03/2024 CMP, serum or plasm a albumin 4.9 g/dL 3.5-5. 3 Not Available [facility] [address] [place] [address], 78224, 02/03/2024 19:47:59 02/03/20 24 02/03/2024 CMP, serum or plasm a ALP 96 U/L 44 - 127 Not Available [facility] [address] [place] [address], 85976, 02/03/2024 19:47:59 02/03/20 24 02/03/2024 CMP, serum or plasm a AST (SGOT) 18 U/L 10-40 Not Available [facility] [address] [place] [address], 49703, 02/03/2024 19:47:59 02/03/20 24 02/03/2024 CMP, serum or plasm a total bilirubin 0.4 mg/dL 0.2-1. 0 Not Available [facility] [address] [place] [address], 77555, 02/03/2024 19:47:59 02/03/20 24 02/03/2024 CMP, serum or plasm a ALT (SGPT) 11 U/L 8-35 Not Available [facility] [address] [place] [address], [id number], 02/03/2024 19:47:59 02/03/20 24 02/03/2024 CMP, serum or plasm a BUN 8 mg/dL 7-21 Not Available [facility] [address] [place] [address], [id number], 02/03/2024 19:47:59 02/03/20 24 02/03/2024 CMP, serum or plasm a creatinine 0.9 mg/dL 0.7-1. 3 Not Available [facility] [address] [place] [address], 95007, 02/03/2024 19:47:59 02/03/20 24 02/03/2024 CMP, serum or plasm a GFR(non-afri can micronesian) 69 Not Available [facility] [address] [place] [address], 96815, 02/03/2024 19:47:59 02/03/20 24 02/03/2024 CMP, serum or plasm a GFR() 84 (REMELTER STEPH KIDNE Y DISEA SE HAS A GFR LESS THAN 60 ML/UT N/1.7 3 MM FOR A PERIO D OF THREE MONTH S OR MORE. ) Not Available [facility] [address] [place] [address], [id number], 02/03/2024 19:47:59 02/03/20 24 02/03/2024 iron panel , serum or plasm a iron panel Not Available [facility] [address] [place] [address], [id number], 02/03/2024 19:48:01 02/03/20 24 02/03/2024 iron panel , serum or plasm a iron 80 ug/dL 50-212 Not Available [facility] [address] [place] [address], 49681, 02/03/2024 19:48:01 02/03/20 24 02/03/2024 iron panel , serum or plasm a % saturation 22 % 20-55 Not Available [facility] [address] [place] [address], 48273, 02/03/2024 19:48:01 02/03/20 24 02/03/2024 iron panel , serum or plasm a ferritin 36 NG/mL 12-150 Not Available [facility] [address] [place] [address], 84214, 02/03/2024 19:48:01 02/03/20 24 02/03/2024 iron panel , serum or plasm a TIBC. 363 ug/dL 205 - 512 Not Available [facility] [address] [place] [address], 43115, 02/03/2024 19:48:01 02/03/20 24 02/03/2024 vitam in B12, serum vitamin B12 847 pg/mL 180-91 4 <145 pg/mL = Defic ient 145 - 180 pg/mL = Inter media te Not Available [facility] [address] [place] [address], 81936, 02/03/2024 19:48:03 02/03/20 24 02/05/2024 STORM (anti nucle ar antib odies ) scree n, serum STORM screen NEGATI VE negati ve Perfo rmed by Bio-R ad enzym e immun oassa y Not Available [facility] [address] [place] [address], [id number], 02/05/2024 12:29:22 Result Notes None recorded. Problems Name Problem SNOMED Code Status Onset Date Resolution Date Notes Provider Name and Address Organization Details Recorded Time Alopecia 89585233 Active 024 Xochitl Jacob [facility] 4 11:38:31 Alopecia 89461183 Active 024 Adele Mullins, NURSE INFORMATICIST, PRODUCTION HONING MACHINE OPERATOR [address] [place] [address], [phone] , [facility] 4 11:46:43 [place] of forehead 416879962 Active 024 Adele Mullins, NURSE INFORMATICIST, PRODUCTION HONING MACHINE OPERATOR [address] [place] [address], [phone] , [facility] 4 06:48:58 Problem Notes None recorded. [...] Name and Address Organization Details Recorded Time 9503362 Product containin g penicilli n (product) medicatio n itching rash Not available Not available Not available 02/02/2024 63122 8001 SNOMED Not Available Health Note 4 22:55:40 3249018 pholcodin e Not available itching nausea rash Not available Not available Not available Not available 02/02/2024 86683 RxNorm Xochitl Jacob [facility] 4 11:10:35 9790365 codeine medicatio n headache rash Not available Not available Not available 02/03/2024 2670 RxNorm [facility] 4 11:11:06 7393439 prednison e medicatio n Not available Not available Not available 04/21/20242010 8640 RxNorm Not Available [facility] 4 20:32:06 5671165 codeine sulfate medicatio n Not available Not available Not available 04/21/20242010 35608 RxNorm Not Available [facility] 4 20:32:14 3994706 azithromy serafin medicatio n Not available Not available Not available 04/21/20242010 42520 RxNorm Not Available [facility] 20:32:29 Medications Name Sig Start Date [...] Updated DateTime 02/03/2024 170.18 cm 19.3 kg/m2 77661.86 g Xochitl Mcgheek [place] [facility] 02/03/2024 11:10:13 Social History Question Answer Notes LastModified by [facility] ion Details LastModified Time Do You Have [...] Do You Have A Medical Power Of Qc Scientist? No [email or web address] Information not available 02/02/2024 What Was The Date Of Your Most Recent Tobacco Screening? 02/03/2024 [email or web address] Information not available 02/02/2024 What Is Your Relationship Status? [email or web address] Information not available 02/02/2024 Do You Use Sunscreen Routinely? Yes [email or web address] Information not available 02/03/2024 Sex: Unknown Functional Status Question Answer Note LastModified by [employer] [facility] Details LastModified Time Do you use [...] Cancer N Stroke N Thyroid Problems N COPD Y Depression Y Asthma N Seizures N Anemia N Heart Disease N Fibromyalgia Y Osteoporosis Y Kidney Disease N Gynecological HistoryNo gynecological history recorded. Obstetrics History GPAL:G 0 P 0 0 0 0 Past Encounters Encounter ID Performer Location Encounter Start Date Encounter Closed Date Diagnosis/Indication Diagnosis SNOMED-CT Code Diagnosis ICD10 Code Diagnosis Note [id number] Adele Mullins, NURSE INFORMATICIST, PRODUCTION HONING MACHINE OPERATOR [facility]) [address] [place] [phone] 02/03/2024 11:05:30 02/03/2024 11:50:13 Alopecia 14059627 L65.9 [place] of forehead 4291 82610 R23.4 Health Concerns Section Related Observation LastModified by Organization Detai ls LastModified Time None Recorded Concern Status LastModified by Organization Details LastModified Time None Recorded Advance Directives Directive N: Payers Insurance Date Sequence Insurance Name Policy Number Policy Fernández Covered Member ID Fernández Member ID Guarantor Name 02/05/2024 2 [place] [id number] Brenda Hammer [id number] Brenda Harman 02/03/2024 1 [place] Brenda Cleary Harman [id number] Brenda Harman Notes Date Note Type [...] tried any OTC anti-aging products. Adele Mullins, NURSE INFORMATICIST, PRODUCTION HONING MACHINE OPERATOR [address] [facility], [place], [phone], [facility] 02/04/2024 06:53:36 OBGyn Episode No OBEpisode recorded.
--- OUTSIDE RECORDS SUMMARY | 2024-12-24 01:35 | XMS_ITS | Data Portability ---
Author Organization [place] - [facility], EFF_Historical Results Address [address] [place] [address] Care Team Providers Care Pump Mechanic Name Role Phone [facility] Primary Care Provider Assessment Encounter Date Assessment Date Assessment LastModified by Organization Details LastModified Time 07/20/2024 07/20/2024 Instructions: -Urge reduction techniques were reviewed - Kegal exercises were encouraged - Toilet every few hours - No Fluids before bed - Keep bladder diary for the next week and bring it with you to your next appt to review with your provider -PTNS Treatmeants are tipically weekly for 12 weeks, and then maitenance treatments every 4-6 weeks - Electronically identified patient education materials provided electronically [employer] Not available 07/20/2024 11:07:01 07/27/2024 07/27/2024 Instructions: -Urge reduction techniques were reviewed - Kegal exercises were encouraged - Toilet every few hours - No Fluids before bed - Keep bladder diary for the next week and bring it with you to your next appt to review with your provider -PTNS Treatmeants are tipically weekly for 12 weeks, and then maitenance treatments every 4-6 weeks - Electronically identified patient education materials provided electronically [email or web address] Not available 07/27/2024 10:57:28 08/03/2024 08/03/2024 Instructions: -Urge reduction techniques were reviewed - Kegal exercises were encouraged - Toilet every few hours - No Fluids before bed - Keep bladder diary for the next week and bring it with you to your next appt to review with your provider -PTNS treatments are typically weekly for 12 weeks, and then maintenance treatments every 4-6 weeks - Electronically identified patient education materials provided electronically [email or web address] Not available 08/03/2024 10:49:19 08/12/2024 08/12/2024 Instructions: -Urge reduction techniques were reviewed - Kegal exercises were encouraged - Toilet every few hours - No Fluids before bed - Keep bladder diary for the next week and bring it with you to your next appt to review with your provider -PTNS treatments are typically weekly for 12 weeks, and then maintenance treatments every 4-6 weeks. Pt request to return in 3 weeks - Electronically identified patient education materials provided electronically She declines sending urine for u/a and culture today to R/O UTI mona Not available 08/12/2024 11:46:02 08/31/2024 08/31/[address] Santana Matt in [place] for consult on interstim or other types or treatment for her symptoms. I do not feel a pessary alone will help with her incontinent episodes. She is on several medications that can impair bladder function. Pt agrees to referral We will check u/a today with increased symptoms mona Not available 08/31/2024 13:21:11 Plan of Treatment Reminders Order Date Submit Date Provider Last Modified By Organization Details Last Modified Time Details Appointments None recorded. Lab urinalysis , complete 2024 025 [employer] [facility], [address] [place], [address], 5 09:59:06 culture, urine 2024 025 [employer] [facility], [address] [place], [address], 5 17:13:03 Referral None recorded. Procedures None recorded. Surgeries None recorded. Imaging None recorded. Medication Orders None recorded. Patient TargetsNo targets recorded. Patient Instructions Encounter Date Encounter Id Patient Instructions Last Modified By Organization Details Last Modified Time 08/31/2024 [id number] overactive bladder education mona Not available 08/31/2024 13:21:12 Reason for Referral None Reported. Results Created Date Observation Date Name Description Value Unit Range Abnormal Flag Note LastModifiedBy Organization Detail LastModifiedTime 08/31/1909/01/2024 URINA LYSIS , COMPL ETE color YELLOW yellow normal Not Available [address], [address], 09/01/2024 09:59:06 08/31/19 25 09/01/2024 URINA LYSIS , COMPL ETE appearance CLEAR clear normal Not Available [address], [address], 09/01/2024 09:59:06 08/31/19 25 09/01/2024 URINA LYSIS , COMPL ETE specific gravity 1.015 1.001- 1.035 normal Not Available [address], [address], 09/01/2024 09:59:06 08/31/19 25 09/01/2024 URINA LYSIS , COMPL ETE pH 7.0 5.0-8. 0 normal Not Available [address], [address], 09/01/2024 09:59:06 08/31/19 25 09/01/2024 URINA LYSIS , COMPL ETE glucose NEGATI VE negati ve normal Not Available [address], [address], 09/01/2024 09:59:06 08/31/19 25 09/01/2024 URINA LYSIS , COMPL ETE bilirubin NEGATI VE negati ve normal Not Available [address], [address], 09/01/2024 09:59:06 08/31/1909/01/2024 URINA LYSIS , COMPL ETE ketones NEGATI VE negati ve normal Not Available [address], [address], 09/01/2024 09:59:06 08/31/19 25 09/01/2024 URINA LYSIS , COMPL ETE occult blood NEGATI VE negati ve normal Not Available [address], [address], 09/01/2024 09:59:06 08/31/19 25 09/01/2024 URINA LYSIS , COMPL ETE protein NEGATI VE negati ve normal Not Available [address], [address], 09/01/2024 09:59:06 08/31/19 25 09/01/2024 URINA LYSIS , COMPL ETE nitrite POSITI VE negati ve abnormal Not Available [address], [address], 09/01/2024 09:59:06 08/31/19 25 09/01/2024 URINA LYSIS , COMPL ETE leukocyte esterase 2+ negati ve abnormal Not Available [address], [address], 09/01/2024 09:59:06 08/31/19 25 09/01/2024 URINA LYSIS , COMPL ETE WBC 6-10 /hpf < or = 5 abnormal Not Available [address], [address], 09/01/2024 09:59:06 08/31/19 25 09/01/2024 URINA LYSIS , COMPL ETE RBC NONE SEEN /hpf < or = 2 normal Not Available [address], [address], 09/01/2024 09:59:06 08/31/19 25 09/01/2024 URINA LYSIS , COMPL ETE squamous epithelial cells NONE SEEN /hpf < or = 5 normal Not Available [address], [address], 09/01/2024 09:59:06 08/31/19 25 09/01/2024 URINA LYSIS , COMPL ETE bacteria MANY /hpf none seen abnormal Not Available [facility] [place] [address] [place], [address], 09/01/2024 09:59:06 08/31/19 25 09/01/2024 URINA LYSIS , COMPL ETE hyaline cast NONE SEEN /lpf none seen normal Not Available [facility] [place] [address] [place], [address], 09/01/2024 09:59:06 08/31/19 25 09/02/2024 CULTU RE, URINE , ROUTI NE culture, urine, routine SEE NOTE abnormal CULTU RE, URINE , ROUTI NE Micro Numbe r: [id number] Test Statu s: Final Speci men Sourc e: Urine Speci men Quali ty: Adequ ate Resul t: Great er than 100,0 00 CFU/m L of Esche kaden a coli E.col i ----- ----- ----- - INT JIMENA AMOX/ CLAVU LANAT E S <=2 AMP/S ULBAC NEIL S <=2 CEFAZ AISSATOU NR <=4 2 CEFEP SHERRIE S <=0.1 2 CEFTA ZIDIM E S <=1 CEFTR IAXON E S <=0.2 5 CIPRO FLOXA SERAFIN S <=0.0 6 GENTA MICIN S <=1 IMIPE NEM S <=0.2 5 LEVOF LOXAC IN S <=0.1 2 MEROP ENEM S <=0.2 5 NITRO FURAN TOIN S 32 PIP/T AZOBA CTAM S <=4 TRIME THOPR IM/TAYLOR LFA S <=20 S = Susce ptibl e I = Inter media te R = Resis tant NS = Not susce ptibl e SDD = Susce ptibl e Dose Depen dent * = Not Teste d NR = Not Repor ketty NN = See Thera py Comme nts THERA PY COMME NTS Note 1: For infec tions other than uncom plica ketty UTI cause d by E. coli, K. pneum oniae or P. mirab ilis: Cefaz aissatou is resis tant if JIMENA > or = 8 mcg/m L. (Dist ingui shing susce ptibl e versu s inter media te for isola petey with JIMENA < or = 4 mcg/m L requi res addit ional testi ng.) Note 2: For uncom plica ketty UTI cause d by E. coli, K. pneum oniae or P. mirab ilis: Cefaz aissatou is susce ptibl e if JIMENA <32 mcg/m L and predi cts susce ptibl e to the oral agent s cefac declan, cefdi konstantin, cefpo doxim e, cefpr ozil, cefur oxime , cepha lexin and lorac arbef . Not Available [facility] [address] [place], [address], 09/02/2024 12:17:33 Result Notes None recorded. Problems Name Problem SNOMED Code Status Onset Date Resolution Date Notes Provider Name and Address Organization Details Recorded Time Increased frequency of urination 541172333 Active 2023 ELVIRA WARREN MD [address] [place] [address], [address] , [facility] 4 12:09:22 Urgent desire to urinate 85942977 Active 2023 ELVIRA WARREN MD [address] [place] [address], [address] , [facility] 4 12:09:24 History of hysterecto my 880098893 Active 2023 ELVIRA WARREN MD [address] [place] [address], [address] , [facility] - 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 - [facility] 4 12:09:29 Atrophic vaginitis 07066729 Active 2023 ELVIRA WARREN MD [address] [place] [address], [address] , [place] - [facility] 4 12:09:32 Dyspareuni a 25910518 Active 2023 ELVIRA WARREN MD [address] [place] [address], [address] , [place] - [facility] 4 12:09:33 Overactive urinary bladder 776969857 Active 2023 ELVIRA WARREN MD [address] [place] [address], [address] , [place] - [facility] 12:09:38 Ex-smoker 6934850 Active 2023 ELVIRA WARREN MD [address] [place] [address], [address] , [place] - [facility] 10:44:55 Problem Notes None recorded. Procedures Surgical History Date Name Laterality Status Provider Name and Address Organization Details Recorded Time 08/12/19 25 EFF PTNS completed JORI RUSH APN [address] [place] [address], [address], [place] - [facility] 08/12/2024 11:44:36 08/03/19 25 EFF PTNS completed JORI RUSH APN [address] [place] [address], [address], [place] - [facility] 08/03/2024 10:47:58 07/27/19 25 EFF PTNS completed [place], [address], [place] [facility] 07/27/2024 10:57:20 07/20/19 25 EFF PTNS completed [place], [address], [place] [facility] 07/20/2024 11:06:01 07/13/20 24 EFF PTNS completed [place], [address], [place] [facility] 07/13/2024 10:48:21 07/06/20 24 EFF PTNS completed JORI RUSH APN [address] [place], [address], [place] [facility] 07/06/2024 10:37:23 06/29/20 24 EFF PTNS completed JORI RUSH APN [address] [place], [address], [place] [facility] 06/29/2024 10:50:07 06/22/20 24 EFF PTNS completed JORI RUSH APN [address] [place], [address], [place] [facility] 06/22/2024 10:53:24 06/15/20 24 EFF PTNS completed JORI RUSH APN [address] [place], [address], [place] [facility] 06/15/2024 10:46:51 06/07/20 24 EFF PTNS [place], [address], [place] [facility] 06/07/2024 11:31:17 06/01/20 24 EFF PTNS completed JORI RUSH APN [address] [place], [address], [place] [facility] 06/01/2024 10:45:12 05/27/20 24 EFF PTNS completed JORI RUSH APN [address] [place], [address], [place] [facility] 05/27/2024 12:12:56 05/18/20 24 EFF Urodynamics completed JORI RUSH APN [address] [place], [address], [place] [facility] 05/18/2024 18:03:29 balloon kyphoplasty of fracture of spine completed Breanne Brewer [place] - [facility] 12/05/2023 11:34:48 colonoscopy completed Breanne Brewer [place] [facility] 12/05/2023 11:34:59 operation on neck completed Breanne Brewer [place] [facility] 12/05/2023 11:36:53 surgical pneumothorax completed Breanne Brewer [facility] 12/05/2023 11:37:52 Oophorectomy completed Jocelynne Will [place] - [facility] 12/10/2023 11:22:21 Ovarian Cystectomy completed Jocelynne Will [facility] 12/10/2023 11:22:21 Appendectomy completed Jocelynne Will [facility] 12/10/2023 11:22:21 Hysterectomy and BSO completed Jocelynne Will [facility] 12/10/2023 11:22:21 Imaging Results None recorded. Procedure Notes None recorded. Medical Equipment None Reported. Allergies Allergen ID Allergen Name Allergen Category Reaction Reaction Severity Criticality Documentation Date Start Date Code Code System Note Provider Name and Address Organization Details Recorded Time 7928 azithromy serafin medicatio n rash Not available Not available 12/05/2023 06284 RxNorm Breanne Daniella null, [place] - [facility] 4 10:48:32 7929 Ceftin medicatio n nausea Not available Not available 12/05/2023 55024 6 RxNorm Breanne Daniella null, [place] - [facility] 4 10:48:46 7930 codeine medicatio n rash Not available Not available 12/05/2023 2670 RxNorm Breanne Daniella [place], [place] - [facility] 4 10:49:03 7931 Elavil medicatio n Not available Not available Not available 12/05/2023 74206 RxNorm make s me mean Breanne Daniella null, [place] - [facility] 4 10:49:34 7932 Product containin g penicilli n (product) medicatio n Not available Not available Not available 12/05/2023 31521 8001 SNOMED Breanne Brewer [facility], [facility] 4 10:49:42 7933 prednison e medicatio n Not available Not available Not available 12/05/2023 [address] [facility] s Breanne Brewer [facility], [place] - [facility] 4 10:50:00 Medications Name Sig Start Date Stop Date [...] DAY ON DAY 2 THROUGH DAY 5 04/11 completed Not Available Not Available Not Available meloxicam 15 mg tablet active Not Available Not Available Not Available lisinopril 20 mg tablet TAKE 1 TABLET BY MOUTH ONCE DAILY active Not Available Not Available No t Available ondansetron HCl 4 mg tablet TAKE 1 TABLET BY MOUTH EVERY 8 HOURS NEEDED active Not Available Not Available No t Available ropinirole 3 mg tablet TAKE 1 TABLET BY MOUTH THREE TIMES DAILY active Not Available Not Available No t Available gabapentin 400 mg capsule TAKE 3 CAPSULES BY MOUTH THREE TIMES DAILY active Not Available Not Available No t Available metronidazo le 250 mg tablet TAKE 1 TABLET BY MOUTH THREE TIMES DAILY active Not Available Not Available No t Available hydroxyzine HCl 50 mg tablet TAKE 1 TABLET BY MOUTH 4 TIMES DAILY NEEDED active Not Available Not Available No t Available minoxidil 2.5 mg tablet TAKE 1/2 (ONE-HALF ) TABLET BY MOUTH ONCE DAILY 04/11 completed Not Available Not Available Not Available ropinirole 2 mg tablet TAKE ONE Tablet BY MOUTH THREE TIMES DAILY 12/09 completed Not Available Not Available Not Available mirtazapine 30 mg tablet TAKE 1 TABLET BY MOUTH ONCE DAILY AT BEDTIME active Not Available Not Available No t Available trazodone 150 mg tablet TAKE 2 TABLETS BY MOUTH AT BEDTIME active Not Available Not Available No t Available oxybutynin chloride ER 5 mg tablet,exte nded release 24 hr TAKE 1 TABLET BY MOUTH ONCE DAILY 04/14 completed Not Available Not Available Not Available omeprazole 20 mg capsule,del ayed release TAKE 2 CAPSULES BY MOUTH AT BEDTIME active Not Available Not Available No t Available levofloxaci n 500 mg tablet TAKE 1 TABLET BY MOUTH ONCE DAILY FOR 10 DAYS active Not Available Not Available No t Available oxybutynin chloride 5 mg tablet TAKE 1 TABLET BY MOUTH TWICE DAILY 12/30 completed Not Available Not Available Not Available betamethaso ne dipropionat e 0.05 % lotion APPLY TO SCALP EVERY OTHER DAY UNTIL HAIR IS NORMAL, THEN NEEDED active Not Available Not Available No t Available Ventolin HFA 90 mcg/actuati on aerosol inhaler INHALE 2 PUFFS BY MOUTH EVERY 4 HOURS NEEDED active Not Available Not Available No t Available escitalopra m 10 mg tablet TAKE 1 TABLET BY MOUTH ONCE DAILY active Not Available Not Available No t Available Premarin 0.625 mg/gram vaginal cream INSERT 0.5 APPLICATO RSFUL EVERY DAY BY VAGINAL ROUTE, USE NIGHTLY FOR 2 WEEKS, THEN EVERY OTHER NIGHT, THEN TWICE PER WEEK active Not Available Not Available No t Available metoprolol tartrate 25 mg tablet TAKE 1/2 (ONE-HALF ) TABLET BY MOUTH TWICE DAILY active Not Available Not Available No t Available nitrofurant oin monohydrate /macrocryst als 100 mg capsule Take 1 capsule every 12 hours by oral route for 7 days. active Not Available Not Available No t Available varenicline tartrate 0.5 mg (11)-1 mg (42) tablets in a dose pack active Not Available Not Available Not Available Myrbetriq 25 mg tablet,exte nded release Take 1 tablet every day by oral route. 12/30 completed Not Available Not Available Not Available Gemtesa 75 mg tablet TAKE 1 TABLET BY MOUTH ONCE DAILY 04/11 completed Not Available Not Available Not Available Vitals Date Recorded Body height Body mass index (BMI) Body weight Systolic blood pressure Diastolic blood pressure Provider Name and Address Organization Details Last Updated DateTime 07/20/2024 170.18 cm 21.8 kg/m2 16326.34 g 121 mm[Hg] 81 mm[Hg] [facility] 10:39:19 Date Recorded Body height Body mass index (BMI) Body weight Systolic blood pressure Diastolic blood pressure Provider Name and Address Organization Details Last Updated DateTime 07/27/2024 170.18 cm 21.3 kg/m2 53338.56 g 120 mm[Hg] 78 mm[Hg] [facility] 5 10:36:51 Date Recorded Body height Body weight Systolic blood pressure Diastolic blood pressure Provider Name and Address Organization Details Last Updated DateTime 08/03/2024 170.18 cm 77404.56 g 126 mm[Hg] 76 mm[Hg] [facility] 08/03/2024 10:31:50 Date Recorded Body height Body mass index (BMI) Body weight Systolic blood pressure Diastolic blood pressure Provider Name and Address Organization Details Last Updated DateTime 08/12/2024 170.18 cm 21.3 kg/m2 09499.56 g 114 mm[Hg] 74 mm[Hg] [facility] 5 11:24:02 Date Recorded Body height Body mass index (BMI) Body weight Systolic blood pressure Diastolic blood pressure Provider Name and Address Organization Details Last Updated DateTime 08/31/2024 170.18 cm 21.8 kg/m2 76555.34 g 118 mm[Hg] 70 mm[Hg] [facility] 5 10:22:25 Social History Question Answer Notes LastModified by Organizat ion Details LastModified Time Tobacco Smoking Status [facility] 04/14/2024 10:21:19 What Is Your Level Of Caffeine Consumption? Moderate Information not available 12/05/2023 What Type Of Diet Are You Following? REGULAR Information not available 12/05/2023 Who Is Your Employer? Disabled Information not available 04/14/2024 Have There Been Any Changes To Your Family Or Social Situation? No Information not available 12/05/2023 What Is The Highest Level Of School You Have Completed Or The Highest Degree You Have Received? Associate Degree Information not available 12/05/2023 How Do You Identify Yourself? Heterosexual Information not available 12/05/2023 What Is Your Ethnicity? Information not available 12/05/2023 What Was The Date Of Your Most Recent Tobacco Screening? 06/29/2024 [email or web address] Information not available 06/24/2024 What Is Your Relationship Status? Information not available 12/05/2023 Are There Any Smokers In Your House? Yes Information not available 12/05/2023 How Much Tobacco Do You Smoke? No Information not available 04/14/2024 How Many Years Have You Smoked Tobacco? 42 Information not available 12/05/2023 Sex: Female Functional Status Question Answer Note LastModified by Organizat ion Details LastModified Time Do you use any illicit or recreational drugs? No Information not available 12/05/2023 Do you or have you ever used any other forms of tobacco or nicotine? Yes Information not available 12/10/2023 What is your level of alcohol consumption? None Information not available 12/05/2023 Are you currently employed? No Information not available 12/05/2023 What is your occupation? Disabled Information not available 12/10/2023 What is your exercise level? Moderate Information not available 12/05/2023 Mental Status None recorded. Family History Relationship Description Onset Age of this Age Resolved Age Notes LastModified by Organization Details LastModified Time Unspecified Relation Family history of Thyroid disorder Not available 2023 11:32:19 Father Family history of malignant neoplasm Not available 2023 11:32:36 Medical History Condition Response Allergies (Food, seasonal, environmental ) N Other N Thyroid Disease N Cancer Endometrial N Blood Transfusion N Cancer Breast N Migraines Y GI Problems N Lung Disease N Depression N Eating Disorder N Hematologic (Blood) Disorder N Gestational Diabetes N Anemia Y Psychiatric Disorder N Thrombophilia N Cancer Colon N Anxiety Disorder N Diabetes N Cancer Other N Arthritis N Cancer Uterine N Acid Reflux (GERD) Y Stroke N Asthma N Polycystic Ovary Syndrome (PCOS) N Endometriosis N High Cholesterol N Neurologic Disorder N Defects N Liver Disease N Heart Disease N Cancer Ovarian N Fibromyalgia Y Deep Vein Thrombosis (DVT) or Pulmonary Embolism (PE) N Hypertension Y Osteoporosis Y Kidney Disease N Autoimmune Disease N Gynecological History Statement/Question Response Abnormal Pap N Date of Last Mammogram Post Menopausal Bleeding N STIs/STDs N HPV Vaccine N Age at Menarche 9 Current Control Method Hysterectom y Date of Last DEXA If Post Menopausal, Age at Menopause 21 Date of Last Colonoscopy Sexually Active? N Menses Monthly N Date of Last Pap Smear Hormone Replacement Therapy N Obstetrics History GPAL:G 3 P 2 0 1 2 Type Value Full Term 2 Spontaneous 1 Living 2 Total 3 Past Encounters Encounter ID Performer Location Encounter Start Date Encounter Closed Date Diagnosis/Indication Diagnosis SNOMED-CT Code Diagnosis ICD10 Code Diagnosis Note [id number] ELVIRA WARREN MD [facility] [address] [place] [address] 12/10/2023 11:17:59 12/10/2023 12:12:27 Increased frequency of urination 445135224 R35.0 Urinary frequency w/ negative urine cx per her report at Dr. Herbert 's. Has a hx of low back pain and disc disease and is getting steroid injections so would like to get that MRI report but no concerning sx or findings on exam.We reviewed options including PFPT, vaginal estrogen - which could also benefit GSM, anticholin ergics, beta agonists, PTNS, bladder botox, and Interstim. We reviewed side effects of each. She would like to start w/ vaginal estrogen and Myrbetriq. If cost is an issue can try vaginal estrogen at [facility] and then through [facility] if still an issue. If Myrbetriq is an issue may need an anticholin ergic. If no response will repeat UA & cx and consider urodynamic s. 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 0820709361 3867998 N95.8 Atrophic vaginitis 56937 000 N95.2 Dyspareunia 97028247 N94 .10 Complicati on of surgical procedure 85215768 T81.9XXA Pneumothor ax - now w/ breast abnormalit ies and loss of architectu re since thenVery self conscious and affecting quality of life Loss of hair 133548151 L 65.9 Would like to see Dermatolog y; will initiate referral Overactive urinary bladder 345251915 N32.81 Low back pain 649258083 M54.50 [id number] MD JEANE MARTINES_Jayesh Martinez[address] [place] [address] 04/14/2024 10:16:42 04/14/2024 11:38:59 Overactive urinary bladder 451312612 N32.81 Has previously been on 3 meds for this, none of which have helped; given lack of response I think it would be best to r/o neurogenic causes of bladder dysfx w/ urodynamic s.Will arrange and if confirmed OAB options remain PTNS, bladder botox, and Interstim as well as assistance from PFPT.We discussed possibilit y of MINA Tx as well if confirmed on urodynamic s. 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 Also demonstrat ed low capacity bladder and significan t urgency and OAB sx. We discussed that we could start w/ Tx for the OAB component and has tried multiple different medication s without improvemen t. We discussed PTNS as best next step and also discussed potential for Urology referral, bladder Botox, and TVT and/or urethral bulking. We discussed low capacity bladder which could make Tx more difficult. [id number] MD Th[place] [address] 05/18/2024 14:29:46 05/20/2024 07:35:20 Female stress incontinence [id number] N39.3 [id number] JORI RUSHMIN EFF_Effin gham [address] [place] [address] 8 05/27/2024 11:29:19 05/27/2024 12:23:50 Urgent desire to urinate [id number] R39.15 Urge incon tinence of urine [id number] N39.41 [id number] JORI RUSHMIN EFF_[facility]in [facility] [address] [address] 8 06/01/2024 10:07:00 06/01/2024 11:08:28 Urgent desire to urinate 84926860 R39.15 PTNS [id number] VITA BERMUDEZ MD [facility] [address] [address] 8 06/07/2024 10:45:13 06/07/2024 12:05:19 Increased frequency of urination [id number] R35.0 Urge incon tinence of urine 80644149 N39.41 [id number] TACOS STEINER MD [facility] [address] [place] [address] 06/15/2024 10:17:57 06/15/2024 10:58:43 Urgent desire to urinate [id number] R39.15 PTNS Urge incon tinence of urine 76075299 N39.41 Nocturia 122628852 R35.1 [id number] EMILY PIZARRO MD [facility] [address] [address] 8 06/22/2024 10:11:00 06/22/2024 11:11:38 Urgent desire to urinate 22175646 R39.15 PTNS Urge incon tinence of urine 00502001 N39.41 [id number] ELVIRA WARREN MD EFF_[facility]ffin claude [address] [place] [address] 06/29/2024 10:12:45 06/29/2024 10:57:10 Urgent desire to urinate 45925767 R39.15 PTNS [id number] ELVIRA WARREN MD [facility] [address] [place] [address] 07/06/2024 10:13:42 07/06/2024 10:39:59 Urgent desire to urinate 93617291 R39.15 PTNS [id number] ELVIRA WARREN MD [facility] [address] [place] [address] 07/13/2024 10:12:27 07/13/2024 10:54:07 Urgent desire to urinate 27355764 R39.15 PTNS [id number] EMILY PIZARRO MD [facility] [address] [address] 8 07/20/2024 10:33:26 07/20/2024 11:30:09 Urgent desire to urinate 20453927 R39.15 PTNS Urge incon tinence of urine [id number] N39.41 [id number] TACOS STEINER MD [facility] [address] [place] [address] 07/27/2024 10:19:45 07/27/2024 11:12:00 [id number] ELVIRA WARREN MD [facility] [address] [address] 8 08/03/2024 10:13:36 08/03/2024 11:15:45 Urgent desire to urinate 68902304 R39.15 PTNS [id number] TACOS STEINER MD [facility] [address] [place] [address] 08/12/2024 11:15:17 08/12/2024 11:47:06 Urgent desire to urinate 61758747 R39.15 PTNS [id number] VITA BERMUDEZ MD [facility] [address] [place] [address] 08/31/2024 10:09:10 08/31/2024 14:08:56 Mixed urinary incontinence [id number] N39.46 Urgent venkatesh candice to urinate 16424097 R39.15 PTNS Female str ess incontinence 09579873 N39.3 Health Concerns Section Related Observation LastModified by Organization Detai ls LastModified Time None Recorded Concern Status LastModified by Organization Details LastModified Time None Recorded Advance Directives Directive None Recorded Payers Insurance Date Sequence Insurance Name Policy Number Policy Fernández Covered Member ID Fernández Member ID Guarantor Name 08/29/2024 1 [place] Brenda Hammer [id number] Brenda Hammer 08/29/2024 [place] [facility] Brenda Hammer [id number] Brenda Hammer 09/01/2024 2 [place] [id number] Brenda Harman [id number] Brenda Harman Notes Date Note Type Note Provider Name and Address Organization Details Recorded Time 07/20/2024 text/html Pt presents toda y for PTNS #9. No complaints and is overall doing well. JORI RUSH APN [address] [place], [address], [facility] 07/20/2024 11:08:01 07/27/2024 text/html Pt presents toda y for PTNS treatment 10. No complaints and overall well. JORI [place], [address], [facility] 07/27/2024 10:57:46 08/03/2024 text/html Pt presents toda y for PTNS 11. JORI [place], [address], [facility] 08/03/2024 10:49:45 08/12/2024 text/html Pt presents toda y for PTNS #12 Pt reports she had a few episodes of urgency with no leakage on a day she increased H2O. JORI RUSH APN [address] [place], [address], [facility] 08/12/2024 11:46:23 08/31/2024 text/html Pt request to di scuss her worsening symptoms today and declines further PTNS tx's Pt reports her symptoms of urgency, stress incont with cough, sneeze and going from a sitting to a standing position have returned since her last visit. She is very discouraged at this point and is asking what she can do at this point. She has tried 3 different anticholinergic meds and has failed those. PTNS tx today was cancelled per pts request JORI RUSH, EDGE BANDING MACHINE OFFBEARER [address] [place], [address], [facility] 08/31/2024 13:24:03 OBGyn Episode Ob Episode Information Episode Created Date Number of Fetuses Patient Bloodtype Patient rh Status Prepregnancy Weight lbs Domestic Partner Domestic Partner Phone Father Name Rolling Chair Pusher Status 12/05/19 1 CLOSED Fetus Data First Name Last Name Admitted to NICU Weight (g) Sex Living Outcome Pediatric Complications Fetus ID Race Codes Race Delivery Type 2891.64 9 F Full Term [id number] Vaginal Delroy Calculation Initial Delroy Date Initial Exam Date Initial Exam Provider Initial Ultrasound Date Last Menstrual Period Date Ultra Sound Weeks Gestation 0 Eighteen To Twenty Week Delroy Update Ultra Sound Date Fundal Height At Umbil Quickening Date Ultra Sound Latest Weeks Gestation Final Delroy Confirmed By Final Delroy Confirmed Date Final Delroy Date Ultra Sound Latest Days Gestation 0 0 Menstrual History Last Menstrual Date Menses Monthly On Bcp Conception Prior Menses Frequency Hcg Plus Date Menarche Onset Age Delivery Information Delivery Date Delivery Type Labor Anesthesia Weeks Gestation Incision Type Labor Labor Length Hrs Delivered By Post Complications Tubal Sterilization Discharge Date Comments 8 Local false Discharge Information Feeding Method Contraceptive Method Maternal HG B and HCT Levels Ob Episode Information Episode Created Date Number of Fetuses Patient Bloodtype Patient rh Status Prepregnancy Weight lbs Domestic Partner Domestic Partner Phone Father Name Rolling Chair Pusher Status 12/05/19 24 1 CLOSED Fetus Data First Name Last Name Admitted to NICU Weight (g) Sex Living Outcome Pediatric Complications Fetus ID Race Codes Race Delivery Type 2806.37 3704 M Full Term [id number] Vaginal Delroy Calculation Initial Delroy Date Initial Exam Date Initial Exam Provider Initial Ultrasound Date Last Menstrual Period Date Ultra Sound Weeks Gestation 0 Eighteen To Twenty Week Delroy Update Ultra Sound Date Fundal Height At Umbil Quickening Date Ultra Sound Latest Weeks Gestation Final Delroy Confirmed By Final Delroy Confirmed Date Final Delroy Date Ultra Sound Latest Days Gestation 0 0 Menstrual History Last Menstrual Date Menses Monthly On Bcp Conception Prior Menses Frequency Hcg Plus Date Menarche Onset Age Delivery Information Delivery Date Delivery Type Labor Anesthesia Weeks Gestation Incision Type Labor Labor Length Hrs Delivered By Post Complications Tubal Sterilization Discharge Date Comments 5 None false I was too small, used forceps, ripped. Discharge Information Feeding Method Contraceptive Method Maternal HG B and HCT Levels
--- OUTSIDE RECORDS SUMMARY | 2024-12-24 01:35 | XMS_ITS | Encounter Summary ---
Author Organization [facility] Address [address] [place] [address] Phone Care Team Providers Care Director Of Transportation Name Role Phone Kenrick Herbert MD Primary Care Provider Reason for Referral * Consultation - Closed Specialty Diagnoses / Procedures Referred By Stacey byrne Referred To Contact Plastic Surgery Diagnoses [place] reconstructed breast Procedures AMB CONSULT PLASTIC SURGERY Jennifer Johnson MD [facility] [address] [place] [address] Phone: tel: fax: Plastic Surg [facility] [address] [place] [address] Phone: tel: fax: Referral ID Status Reason Start Date Expiration Date Visits Re quested Visits Authorized [id number] Closed 12/31/2023 1 1 Encounter Details Date Type Department Care Team (Latest Contact Info) Description 12/31/2023 Transcribe Orders Plastic Surg [facility] [address] [place] [address] Provider, Unknown [place]apen reconstructed breast (Primary Dx) Social History Tobacco Use Types Packs/Day Years Used Date Smoking Tobacco: Never Assessed Comments Unknown Sex and Gender Information Value Date Recorded Sex Assigned at Not on file 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 Gender Identity Not on file Sexual Orientation Not on file documented as of this encounter Plan of Treatment Upcoming Encounters Date Type Department Care Team (Late st Contact Info) Description 01/19/2025 2:00 PM CDT Consult Plastic Surg [facility] [address] [place], [place] [id number] Noe Baltazar MD [address] [place], [place] [address] documented as of this encounter Visit Diagnoses Diagnosis Miss[place]apen reconstructed breast- Primary Deformity of reconstructed breast documented in this encounter Care Teams Director Of Transportation Relationship Specialty Start Date End Date Kenrick Herbert MD [address] [place] [address] PCP - General Wound Care 12/31/23 documented as of this encounter
--- OUTSIDE RECORDS SUMMARY | 2024-12-24 01:35 | XMS_ITS | Encounter Summary ---
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 PSR notes that plastic surgery guidelines state that Breast aug/implants are a cosmetic procedure. PSR offered to schedule consult and let MD determine if any different. PSR did tell patient that there is a $75 cosmetic consult fee. Patient verbalized understanding. Routing to Nurse and PSR transportation department supervisor to review referral documented in this encounter Plan of Treatment Upcoming Encounters Date Type Department Care Team (Late st Contact Info) Description 01/19/2025 2:00 PM CDT Consult Plastic Surg [facility] [address] [place] [address] Noe Baltazar MD [address] [place], [place] [id number] documented as of this encounter Visit Diagnoses Not on filedocumented in this encounter Care Teams Cold Roll Catcher Relationship Specialty Start Date End Date Kenrick Herbert MD [address] [place] [address] PCP - General Wound Care 12/31/23 documented as of this encounter
[2024-12-24 06:38] VITALS: BP 112/65; PULSE 79; RESP 20; TEMP 36.8; O2SAT 99
--- NOTE | 2024-12-24 07:13 | WPDANESEPPF ---
Anes - Initial Pre Proc Eval Procedure: Operation Date: 12/24/24 08:15 Proposed Procedures p Neurostimulator Implant - Santana Matt MD Date/Time: 12/24/24 07:13 Surgeon: Santana Matt MD Pre Op Diagnosis: Urgent Incont Patient Data Age: 54 Gender: F Height: 1.7 m Weight: 65 kg Allergies Allergy/AdvReac Type Severity Reaction Status Date / Time adhesive tape Allergy Mild BLISTERS Verified 12/16/24 12:01 codeine Allergy Mild Rash Verified 12/16/24 12:01 Penicillins Allergy Mild Rash Verified 12/16/24 12:01 STEROID Allergy Unknown Swelling Uncoded 12/24/24 06:52 of Lip/Tongue/Throat Home Medications ?Medication ?Instructions ?Recorded ?Confirmed ?Type calcium carbonate (Calcium 600) 600 mg PO DAILY 12/16/24 12/24/24 History cyanocobalamin (vitamin B-12) 500 2,500 mcg PO DAILY 12/16/24 12/24/24 History mcg tablet cyclobenzaprine 10 mg tablet 10 mg PO HS 12/16/24 12/24/24 History fludrocortisone 0.1 mg tablet 0.1 mg PO DAILY PRN hypotension 12/16/24 12/16/24 History gabapentin 400 mg capsule 400 mg PO TID 12/16/24 12/24/24 History hydroxyzine HCl 50 mg tablet 50 mg PO HS PRN insomnia 12/16/24 12/24/24 History lisinopril 20 mg tablet 20 mg PO DAILY 12/16/24 12/16/24 History metoprolol tartrate 25 mg tablet 25 mg PO DAILY PRN hypertensive 12/16/24 12/16/24 History emergency omeprazole 20 mg capsule,delayed 40 mg PO HS 12/16/24 12/24/24 History release potassium chloride 20 mEq 20 meq PO DAILY 12/16/24 12/24/24 History tablet,extended release ropinirole 3 mg tablet 3 mg PO TID 12/16/24 12/24/24 History rosuvastatin 5 mg tablet 5 mg PO DAILY 12/16/24 12/16/24 History trazodone 150 mg tablet 300 mg PO HS 12/16/24 12/24/24 History Patient hx anesthesia problems: none Family hx anesthesia problems: none Results Review: All pre-operative results and documents have been reviewed as part of the pre-operative evaluation. FORMERLY [facility] Past Medical History Medical History (Updated 12/24/24 @ 07:07 by Alfonso Coronado DO) Hypertension Fibromyalgia GERD (gastroesophageal reflux disease) COPD (chronic obstructive pulmonary disease) Social History Social History Smoking packs per day: 1 Smoking cigarettes per day: 20.0 Years smoked: 15 Smoking pack-years: 15.00 Smoking status: Former smoker Tobacco type: cigarettes Smoking end date: 09/13/24 Alcohol intake: never Substance use: never Living arrangements: with family Spiritual care concerns: No Anes - Eval Final PreProcedure Day of Procedure 12/24/24 07:13 Patient weight: normal Heart: regular rate and rhythm Lungs: clear to auscultation and normal air movement Airway: Mallampati scale class II Neurological: alert and oriented Last oral intake: >/= 8 hours ASA classification: III Emergent: no Anesthetic plan: proceed Anesthesia type and monitoring: general GIVS and standard monitoring Results Review: All pre-operative results and documents have been reviewed as part of the pre-operative evaluation. Informed Consent: The patient's anesthetic plan and its attendant risks and benefits were discussed with the patient/family/POA. Questions were solicited and answers provided to the satisfaction of the patient/family/POA.
[2024-12-24] MEDS: LACTATED RINGERS 1,000 ML 30 ML IV CONT (07:15)
--- NOTE | 2024-12-24 08:09 | WPDANESEPPF ---
Anes - Initial Pre Proc Eval Procedure: Operation Date: 12/24/24 08:15 Proposed Procedures p Neurostimulator Implant - Santana Matt MD Date/Time: 12/24/24 08:09 Surgeon: Santana Matt MD Pre Op Diagnosis: Urgent Incont Patient Data Age: 54 Gender: F Height: 1.7 m Weight: 65.8 kg Last Vital Signs Temp 36.8 C 12/24/24 06:38 Pulse 79 12/24/24 06:38 Resp 20 12/24/24 06:38 BP 112/65 12/24/24 06:38 Pulse Ox 99 12/24/24 06:38 O2 Del Method Room Air 12/24/24 06:38 Allergies Allergy/AdvReac Type Severity Reaction Status Date / Time adhesive tape Allergy Mild BLISTERS Verified 12/24/24 07:21 codeine Allergy Mild Rash Verified 12/16/24 12:01 Penicillins Allergy Mild Rash Verified 12/16/24 12:01 STEROID Allergy Unknown Swelling Uncoded 12/24/24 06:52 of Lip/Tongue/Throat Home Medications ?Medication ?Instructions ?Recorded ?Confirmed ?Type calcium carbonate (Calcium 600) 600 mg PO DAILY 12/16/24 12/24/24 History cyanocobalamin (vitamin B-12) 500 2,500 mcg PO DAILY 12/16/24 12/24/24 History mcg tablet cyclobenzaprine 10 mg tablet 10 mg PO HS 12/16/24 12/24/24 History fludrocortisone 0.1 mg tablet 0.1 mg PO DAILY PRN hypotension 12/16/24 12/16/24 History gabapentin 400 mg capsule 400 mg PO TID 12/16/24 12/24/24 History hydroxyzine HCl 50 mg tablet 50 mg PO HS PRN insomnia 12/16/24 12/24/24 History lisinopril 20 mg tablet 20 mg PO DAILY 12/16/24 12/16/24 History metoprolol tartrate 25 mg tablet 25 mg PO DAILY PRN hypertensive 12/16/24 12/16/24 History emergency omeprazole 20 mg capsule,delayed 40 mg PO HS 12/16/24 12/24/24 History release potassium chloride 20 mEq 20 meq PO DAILY 12/16/24 12/24/24 History tablet,extended release ropinirole 3 mg tablet 3 mg PO TID 12/16/24 12/24/24 History rosuvastatin 5 mg tablet 5 mg PO DAILY 12/16/24 12/16/24 History trazodone 150 mg tablet 300 mg PO HS 12/16/24 12/24/24 History Patient hx anesthesia problems: none Family hx anesthesia problems: none Results Review: All pre-operative results and documents have been reviewed as part of the pre-operative evaluation. [facility] Past Medical History Medical History (Updated 12/24/24 @ 07:07 by Alfonso Coronado DO) Hypertension Fibromyalgia GERD (gastroesophageal reflux disease) COPD (chronic obstructive pulmonary disease) Social History Social History Smoking packs per day: 1 Smoking cigarettes per day: 20.0 Years smoked: 15 Smoking pack-years: 15.00 Smoking status: Former smoker Tobacco type: cigarettes Smoking end date: 09/13/24 Alcohol intake: never Substance use: never Living arrangements: with family Spiritual care concerns: No Anes - Eval Final PreProcedure Day of Procedure 12/24/24 08:09 Patient weight: normal Heart: regular rate and rhythm Lungs: decreased breath sounds Airway: Mallampati scale class II Neurological: alert and oriented Last oral intake: >/= 8 hours ASA classification: III Emergent: no Anesthetic plan: proceed Anesthesia type and monitoring: general GIVS and LMA and standard monitoring Results Review: All pre-operative results and documents have been reviewed as part of the pre-operative evaluation. Informed Consent: The patient's anesthetic plan and its attendant risks and benefits were discussed with the patient/family/POA. Questions were solicited and answers provided to the satisfaction of the patient/family/POA.
--- NOTE | 2024-12-24 09:08 | WPDHPUPDATE1 ---
History and Physical Update Update Date/Time: 12/24/24 09:08 History and Physical has been reviewed, including an updated exam of the patient. There are NO changes in the patient's condition. Risks, benefits, and alternatives have been discussed and questions answered. Patient agrees to proceed with procedure.
[2024-12-24] MEDS: ceFAZolin 2 GM/D5W 50 ML 2 GM/50 ML BAG IVPB (09:12)
[2024-12-24] MEDS: ceFAZolin SODIUM 1 GM VIAL (09:12)
[2024-12-24] MEDS: BUPIVACAINE/EPINEPHRINE 0.5% 50 ML VIAL 30 ML INFILTRATE (09:12)
[2024-12-24 09:43] VITALS: BP 100/62; PULSE 101; RESP 16; O2SAT 96
--- NOTE | 2024-12-24 09:50 | W.PM.PROC2 ---
Procedure Note - Detailed Date of Procedure 12/24/24 Pre-op Diagnosis Urgent Incont Post-op Diagnosis Same Procedure Performed Implantation of sacral lead 39704 Placement of implantable pulse generator 63121 Complex neurostimulator programming impedance check [id number] Surgeon Santana Matt MD Anesthesia MAC and Local Indications This is a patient with refractory urge urinary incontinence. They have undergone a successful trial of sacral nerve stimulation. They present today for permanent implantation. They understand the risks of bleeding, infection, decreased efficacy, need for revision and battery changes. They agree to proceed Findings See dictated Description of Procedure They were correctly identified and informed consent was obtained. There brought to the operating room. There placed in the prone position. There given appropriate perioperative antibiotics. A time-out performed. I used fluoroscopy to jaylon out my sacral landmarks in the AP and the lateral orientation. I anesthetized the skin. I entered the S3 foramen. I monitored the needle with fluoroscopy. I got appropriate Jagruti and toe response at a low threshold. I made a skin cayetano. I placed a stylet. I placed the lead introducer sheath. I thinned placed and deployed to my lead. I got appropriate responses again at a low threshold. I marked out the site of the pulse generator. I anesthetized the skin and made that incision. I created a subcutaneous pocket to house the pulse generator. I tunneled the lead towards this pocket. Appropriate connections were made between the lead and the battery. It was placed in the pocket. It was programmed and impedances were checked and found to be normal. I irrigated out all wounds. I ensured hemostasis. I closed the subcutaneous tissues with 2 Vicryl. I closed the skin with 4 0 Vicryl. Glue was applied. There then awakened and transferred to the PACU in stable condition. Implants Sacral neurostimulator Estimated Blood Loss 5 Drains No Packing No Pathology None sent Complications No immediate complications Condition Stable Disposition PACU
[2024-12-24] MEDS: oxyCODONE HCL (*CRX) 5 MG TAB IR PO (10:05)
[2024-12-24 10:13] VITALS: BP 105/62; PULSE 91; O2SAT 97
[2024-12-24 10:43] VITALS: BP 132/90; PULSE 84
[2024-12-24 11:13] VITALS: BP 120/75; PULSE 87
== END 2024-12-24 11:29 | disposition home or self-care (01) ==
PROVIDERS: Visit Provider Urology
PROC: (CPT 64561; principal; 2024-12-24 08:15)
DX: N39.41 Urge incontinence (principal); I10 Essential (primary) hypertension; M79.7 Fibromyalgia; K21.9 Gastro-esophageal reflux disease without esophagitis; J44.9 Chronic obstructive pulmonary disease, unspecified; Z87.891 Personal history of nicotine dependence
CPT/HCPCS: 64561; 64590; 76000; A9270; C1767; C1778; C1787; J0690; J2003; J2004; J2250; J2704; J3010; J7120